=== PATIENT | male | born 1955 | race Caucasian/White ===

== ENCOUNTER 2021-04-20 13:05 | Outpatient (CLI) | payer OTHER, SELFPAY ==
--- NOTE | ~2021-04-20 | CT_ITS ---
EXAMINATION: CT abdomen pelvis wo/w con DATE: 04/21/2021 11:50 INDICATION: Gross hematuria TECHNIQUE: Computed tomography (CT) of the abdomen and pelvis was performed without intravenous contr ast. CT of the abdomen and pelvis was then performed with a total of 130 mL Omnipaque-350 intravenous contrast using a double-bolus technique for simultaneous opacification of the renal parenchyma and r enal collecting system. Automated exposure control and iterative reconstruction technique were employ ed. The dose-length product was 957.81 mGy-cm. COMPARISON: None FINDINGS: Small region of emphysema at the posterior medial aspect of the right middle lobe where there are mul tiple calcified nodules suggesting this likely represents sequela of chronic infection. No pleural ef fusion. Heart size is normal. Minimal pericardial effusion. 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 Multiple small hepatic and splenic calcification consistent with old granulomatous disease. There are few subcentimeter low-attenuation cysts in the right hepatic lobe. Gallbladder, pancreas and bilater al adrenal glands are normal. Bilateral nonenhancing renal cysts measuring up to 3.7 cm the upper ted e of the right kidney and 3.3 cm at the upper pole of the left kidney. Symmetric renal enhancement wi th no urolithiasis or hydronephrosis. The lateral renal collecting systems and ureters are opacified in their entirety with bilateral ureteral jets seen in the bladder. No urothelial irregularities. Pro statomegaly. Small cystic spaces within the enlarged bilateral seminal vesicles. Subtle haziness to t he fat surrounding the bladder, prostate and seminal vesicles. Bowels are unremarkable with no wall t hickening or obstruction. The appendix is not visualized. No pericecal inflammatory change to suggest acute appendicitis. No free intraperitoneal gas or fluid. No pathologically enlarged abdominal or pe lvic lymphadenopathy. There is calcified atherosclerosis of the aorta and many of the other arteries. There are bridging osteophytes at multiple levels in the lower thoracic spine, consistent with diffu se idiopathic skeletal hyperostosis (DISH). IMPRESSION: 1. Bilateral renal cysts. Otherwise normal kidneys and ureters with no urolithiasis, mass or urotheli al irregularities. 2. Prostatomegaly along with cystic dilation enlargement of the bilateral seminal vesicles and mild h aziness to the fat surrounding the bladder, prostate and seminal vesicles which suggests an infectiou s etiology. Correlate clinically for prostatitis/cystitis. Reviewed, dictated and finalized at location A. IMPRESSION: 1. Bilateral renal cysts. Otherwise normal kidneys and ureters with no urolithi asis, mass or urothelial irregularities. 2. Prostatomegaly along with cystic dilation enlargement of the bilateral semin al vesicles and mild haziness to the fat surrounding the bladder, prostate and seminal vesicles which suggests an infectious etiology. Correlate clinically fo r prostatitis/cystitis.
[2021-04-20 14:17] LABS: Estimated Glomerular Filt Rate > 60
== END 2021-04-20 13:06 | disposition home or self-care (01) ==
LOC: ANHIMG 13:12
PROVIDERS: PCP Internal Medicine
DX: R31.0 Gross hematuria (principal); N28.1 Cyst of kidney, acquired; N40.0 Benign prostatic hyperplasia without lower urinary tract symptoms
CPT/HCPCS: 74178; Q9967